=== PATIENT | female | born 1950 | race Two or more races ===

== ENCOUNTER 2016-09-11 17:11 | Emergency (ER) | payer OTHER ==
[~2016-09-11] VITALS: Ht 149.9 cm; Wt 72.6 kg
[2016-09-11 17:18] VITALS: BP 153/94
[2016-09-11] MEDS ORDERED: IBUPROFEN 600 MG TABLET PO ONE ×3 (17:30→17:44)
[2016-09-11] MEDS ORDERED: HYDROCODONE/APAP 10/325MG 1 EA TABLET PO ONE (17:30)
[2016-09-11] MEDS ORDERED: HYDROCODONE/APAP 10/325MG 1 EA TABLET ONE (17:43)
== END 2016-09-11 19:06 | disposition home or self-care (01) ==
LOC: ER 17:14
DX: S83.92XA Sprain of unspecified site of left knee, initial encounter (principal); X37.1XXA Tornado, initial encounter; Y93.89 Activity, other specified; Y92.89 Other specified places as the place of occurrence of the external cause; Y99.8 Other external cause status
CPT/HCPCS: 73564; 99284; A4606; Z7610

== ENCOUNTER 2018-12-07 08:39 | Emergency (ER) | payer BC, OTHER ==
[~2018-12-07] VITALS: Ht 149.9 cm; Wt 73.5 kg
[2018-12-07 08:49] VITALS: BP 134/76
--- NOTE | 2018-12-07 08:52 | NUR ---
PATIENT C/O FAROOQ, Danica/OX4, FAMILY AT BEDSIDE. NO DISTRESS NOTED. WAITING FOR MD LONGO.
[2018-12-07] MEDS ORDERED: KETOROLAC TROMETHAMINE INJ 30 MG/ML VIAL ONE (09:22)
[2018-12-07] MEDS ORDERED: KETOROLAC TROMETHAMINE INJ 60 MG/2 ML VIAL IM ONE (09:30)
== END 2018-12-07 10:02 | disposition home or self-care (01) ==
LOC: ER 08:46
DX: J02.9 Acute pharyngitis, unspecified (principal); I10 Essential (primary) hypertension
CPT/HCPCS: 96372; 99283; J1885

== ENCOUNTER 2024-04-27 17:49 | Emergency (ER) | payer BC ==
[~2024-04-27] VITALS: Ht 149.9 cm; Wt 74.8 kg
[2024-04-27 18:04] VITALS: BP 153/68; TEMP 98.5; O2SAT 96
[2024-04-27] MEDS ORDERED: ACET-868 PO (18:51)
== END 2024-04-27 18:56 | disposition home or self-care (01) ==
LOC: ER 17:49
DX: S01.81XA Laceration without foreign body of other part of head, initial encounter (principal); I10 Essential (primary) hypertension; W01.0XXA Fall on same level from slipping, tripping and stumbling without subsequent striking against object, initial encounter; Y93.89 Activity, other specified; Y92.89 Other specified places as the place of occurrence of the external cause; Y99.8 Other external cause status